=== PATIENT | male | born 1990 | race Caucasian/White ===

== ENCOUNTER 2017-11-13 23:57 | Emergency (ER) | payer OTHER ==
--- NOTE | 2017-11-14 00:16 | PDOC ---
History of Present Illness - General History Source: Patient Exam Limitations: No Limitations - History of Present Illness Initial Comments: 11/14/17 00:49 The patient is a 27-year-old male with no significant past medical history presents to the emergency department with a right forearm rash. The patient states couple of days prior he suffered a tick bite at his house to the L. hand followed by an onset of circular rash to the R. forearm. The patient reports an unrelated concern of a single episode of hemoptysis a month prior, with no other episodes. Denies fever, chills, cough or a headache. Denies chest pain or shortness of breath. Denies abdominal pain or back pain. Denies numbness, tingling or loss of sensation. Denies vertigo or lightheadedness. Denies nausea or vomiting. Allergies: NKDA Social history: Denies the use of cigarettes or alcohol. Surgical history: None reported. PCP: None reported. <Sada De Leon - Last Filed: 11/14/17 00:49> <Martin Gunter - Last Filed: 11/14/17 01:22> - General Stated Complaint: BUG BITE Time Seen by Provider: 11/14/17 00:16 Past History <Sada De Leon - Last Filed: 11/14/17 00:49> <Martin Gunter - Last Filed: 11/14/17 01:22> - Past Medical History Allergies/Adverse Reactions: Allergies Allergy/AdvReac Type Severity Reaction Status Date / Time No Known Allergies Allergy Verified 11/14/17 00:16 Home Medications: Ambulatory Orders Doxycycline Hyclate [Vibratab -] 100 mg PO BID #28 tablet 11/14/17 Review of Systems - Review of Systems Able to Perform ROS?: Yes Comments:: 11/14/17 00:49 CONSTITUTIONAL: No fever, no chills, no fatigue EYES: No visual changes ENT: No ear pain, no sore throat CARDIOVASCULAR: No chest pain, no palpitations RESPIRATORY: No cough, no SOB GI: No abdominal pain, no nausea, no vomiting, no constipation, no diarrhea GENITOURINARY: No dysuria, no frequency, no hematuria MUSKULOSKELETAL: (+) Circular rash to the R. forearm. No backpain, no joint pain , no myalgias SKIN: No rash NEURO: No headache <Sada De Leon - Last Filed: 11/14/17 00:49> *Physical Exam - Vital Signs Last Vital Signs Temp Pulse Resp BP Pulse Ox 98.6 F 68 20 123/81 99 11/14/17 00:16 11/14/17 00:16 11/14/17 00:16 11/14/17 00:16 11/14/17 00:16 - Physical Exam Comments: 11/14/17 00:50 CONSTITUTIONAL: Well-appearing; well-nourished; in no apparent distress HEAD: Normocephalic; atraumatic EYES: PERRL; EOM intact ENMT: External appears normal; normal oropharynx NECK: Supple; non-tender; no cervical lymphadenopathy CARD: Normal S1, S2; no murmurs, rubs, or gallops RESP: Normal chest excursion with respiration; breath sounds clear and equal bilaterally; no wheezes, rhonchi, or rales ABD: Soft, non-distended; non-tender; no palpable organomegaly, no palpable hernias EXT: (+) 8 cm target shaped lesion to the volar aspect of the R. arm. Normal ROM in all four extremities; non-tender to palpation; distal pulses intact SKIN: Warm, dry, no rash NEURO: No focal neurological deficiencies. 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 Will treat with doxycycline twice a day for 14 days with ID follow-up. Patient also endorses history of hemoptysis one month prior without associated B symptoms. Chest x-ray shows no evidence of infiltrate or effusion or cavitary lesion. Will discharge with follow-up. <Martin Gunter - Last Filed: 11/14/17 01:22> *DC/Admit/Observation/Transfer - Attestations Scribe Attestion: 11/14/17 00:52 Documentation prepared by Sada De Leon, acting as medical imaging specialist for Martin Gunter MD. <Sada De Leon - Last Filed: 11/14/17 00:49> - Attestations Physician Attestion: 11/14/17 01:20 The documentation was prepared by the scribe under my direct supervision. I have reviewed the documentation which correctly represents the findings, medical decision-making and critical action taken by me. <Martin Gunter - Last Filed: 11/14/17 01:22> Diagnosis at time of Disposition: Erythema chronicum migrans, Cough - Discharge Dispostion Disposition: HOME Condition at time of disposition: Stable - Referrals Referrals: Josué Cleary MD [Staff Physician] - - Patient Instructions Printed Discharge Instructions: DI for Lyme Disease
[2017-11-14 00:18] VITALS: BP 123/81; PULSE 68; TEMP 98.6; BMI 28.7
== END 2017-11-14 01:29 | disposition home or self-care (01) ==
LOC: JER 23:57
DX: A69.20 Lyme disease, unspecified (principal)
CPT/HCPCS: 71046-TC-FY; 99282-25